=== PATIENT | male | born 1950 | race African-American/Black ===

== ENCOUNTER 2023-05-22 04:13 | Emergency (ER) | payer MEDICAID, MEDICARE ==
[~2023-05-22] VITALS: Ht 177.8 cm; Wt 72.0 kg
[~2023-05-22 04:13] MED LIST: NO HOME MEDICATIONS
[2023-05-22 04:16] VITALS: TEMP 98.5; O2SAT 98
[2023-05-22 05:28] LABS: BASOPHILS % 0.4 % (0.0-2.0); HEMATOCRIT. 37.6 % (42.0-52.0); HEMOGLOBIN. 12.6 g/dL (14.0-18.0); MEAN CORPUSCULAR HEMOGLOBIN 30.3 pg (28.0-32.0); MEAN CORPUSCULAR VOLUME 90.4 fL (80.0-94.0); MEAN PLATELET VOLUME 8.3 fl (7.4-10.4); MONOCYTES % 8.4 % (2.0-8.0); NEUTROPHILS % 65.2 % (40.0-76.0); PLATELET 192 x1000/uL (130-400); RED BLOOD CELL COUNT 4.16 mill/uL (4.7-6.1); RED CELL DISTRIBUTION WIDTH 13.6 % (11.6-14.6)
[2023-05-22 05:34] LABS: CHLORIDE 105 mEq/L (98-107)
[2023-05-22 06:31] VITALS: BP 125/61; PULSE 58; RESP 16
== END 2023-05-22 06:33 | disposition home or self-care (01) ==
LOC: ER 04:13
DX: I16.0 Hypertensive urgency (principal)
CPT/HCPCS: 36415; 80048; 85025; 93005; 99283

== ENCOUNTER 2024-04-22 04:07 | Emergency (ER) | payer MEDICARE, BC ==
[~2024-04-22] VITALS: Ht 177.8 cm; Wt 82.0 kg
[2024-04-22 04:12] VITALS: BP 124/66; PULSE 60; RESP 16; TEMP 98.5; O2SAT 100
== END 2024-04-22 06:34 | disposition home or self-care (01) ==
LOC: ER 04:07
DX: I10 Essential (primary) hypertension (principal); Z00.00 Encounter for general adult medical examination without abnormal findings
CPT/HCPCS: 99283

== ENCOUNTER → 2024-08-19 | Emergency (ER) | payer BC, MEDICARE ==
[2024-08-19 09:27] VITALS: BP 148/73; PULSE 74; RESP 16; TEMP 36.94740; O2SAT 100
== END | disposition home or self-care (01) ==
LOC: ER 07:20
DX: I10 Essential (primary) hypertension (principal); E78.00 Pure hypercholesterolemia, unspecified; Z86.73 Personal history of transient ischemic attack (TIA), and cerebral infarction without residual deficits
CPT/HCPCS: 99281; 99283